=== PATIENT | male | born 1975 | race Caucasian/White ===

== ENCOUNTER 2021-06-06 09:27 | Emergency (ER) | payer OTHER ==
[~2021-06-06] VITALS: Ht 193 cm; Wt 90.7 kg
--- NOTE | 2021-06-06 09:32 | NUR ---
Pending MD evaluation. Patient alert and oriented x 4, complaints of pain on the head 5/10 with history of head injury a week ago. No visible injury noted, no episodes of nausea and vomiting. Patient started getting dizzy since yesterday. Vitals stable.
--- NOTE | 2021-06-06 09:40 | NUR ---
MD at bedside, medical screening exam in process.
[2021-06-06 11:23] VITALS: BP 121/78
== END 2021-06-06 11:00 | disposition home or self-care (01) ==
LOC: ER 09:27
DX: S06.0X0A Concussion without loss of consciousness, initial encounter (principal); W22.01XA Walked into wall, initial encounter; Y92.89 Other specified places as the place of occurrence of the external cause
CPT/HCPCS: 70450; A4663